=== PATIENT | female | born 1975 | race Caucasian/White ===

== ENCOUNTER → 2021-10-10 09:31 | Outpatient (CLI) | payer OTHER, SELFPAY ==
--- NOTE | 2021-10-10 09:37 | DI.US.S_ITS ---
PROCEDURE: US PELVIC COMPLETE INDICATIONS: Pelvic pain TECHNIQUE: Real-time scanning was performed of the pelvic organs, with image documentation. Additional endovaginal scanning was necessary due to incomplete visualization of the adnexal and endometrial structures by transabdominal scanning. COMPARISON: [facility] Ultrasound, US, US PELVIC COMPLETE WITH TRANSVAGINAL, 05/05/2019, 8:36. FINDINGS: Uterus: Uterus is anteverted and normal in size at 9.3 x 3.6 x 4.7 cm. The myometrium is heterogeneous. The endometrial stripe is not well seen. It measures 2-3 mm. Ovaries: The right ovary measures 2.6 x 1 x 1.1 cm. The left ovary measures 2 x 1.2 x 0.9 cm. The ovaries have a normal sonographic appearance. No adnexal masses are seen. Normal appearing arterial waveforms are confirmed to each ovary. Other: No pathologic free abdominal or pelvic fluid. IMPRESSION: A cause of pelvic pain is not identified. Negative for ovarian torsion. Endometrial stripe is poorly seen, it measures 2-3 mm in thickness. A We strive to produce accurate, complete, and clear reports of imaging services. To assist us in improving patient care, this report was composed using standard report templates and voice recognition software. Therefore, it may contain abnormal punctuation, insertions and/or omissions. Occasional wrong-word or sound-alike substitutions may occur. Though we review the report and make efforts to correct it, we do recommend that the report be read carefully in proper context to recognize any text inaccuracies. Dictated by: Alexis David M.D. on 10/10/2021 at 13:04 Approved by: Alexis David M.D. on 10/10/2021 at 13:06
== END ==
PROVIDERS: Referring Provider Obstetrics & Gynecology; Visit Provider Obstetrics & Gynecology
DX: R10.2 Pelvic and perineal pain (principal)
CPT/HCPCS: 76830; 76856

== ENCOUNTER → 2021-12-27 10:46 | Outpatient (CLI) | payer OTHER, SELFPAY ==
[2021-12-27 11:21] LABS: COVID19 -Nasal RAPID Negative (Negative)
== END ==
PROVIDERS: PCP Family Medicine; Visit Provider Obstetrics & Gynecology
DX: Z01.812 Encounter for preprocedural laboratory examination (principal); Z20.822 Contact with and (suspected) exposure to COVID-19
CPT/HCPCS: 87635

== ENCOUNTER 2021-12-28 06:33 | Day surgery (SDC) | payer OTHER, SELFPAY ==
[2021-12-28] VITALS (11 sets, daily range): BP systolic 99–147; BP diastolic 7–99; PULSE 88–99; RESP 10–16; TEMP 36.1–36.9; O2SAT 95–99; BMI 30.1
--- NOTE | 2021-12-28 | PATH_ITS ---
[facility] Accession Number: [id number] . 01 Material submitted: . PART A: endocervix - ENDOCERVICAL CURETTINGS PART B: endometrium - ENDOMETRIAL CURETTING . 02 Diagnosis: A. Endocervix, Curettage: Predominantly blood with strips of mixed benign endocervical epithelium and few strips of benign lower uterine segment endometrial glandular epithelium with features of breakdown. Rare strips of benign squamous epithelium. . B. Endometrium, Curettage: Predominantly blood with few fragments of nonproliferative endometrium with breakdown, in a background with strips of benign endocervical epithelium. Negative for significant cytologic atypia and malignancy. V 01/01/2022 1848 Local . 02 Electronically signed: . Luana John MD, Pathologist NPI- [id number] . 01 Gross description: . Part A: ENDOCERVICAL CURETTINGS: Received in formalin are minute fragments of mucoid and hemorrhagic material measuring 1.5 x 0.8 x 0.2 cm in aggregate. Submitted in toto in 1 cassette. Part B: ENDOMETRIAL CURETTING: Received in formalin are minute fragments of mucoid and hemorrhagic material measuring 2.0 x 0.7 x 0.3 cm in aggregate. Submitted in toto in 1 cassette. /[facility] 12/31/2021 1132 Local . 02 Pathologist provided ICD-10: N82.1, R10.2 . 02 CPT . 433370, 485510 Specimen Comment: A courtesy copy of this report has been sent to [facility] Pathology Performed at: 01 [facility] [address] [address] [facility], [place], [place] [id number] MD Roney Manley MD Phone: [phone] Performed at: 02 [facility] [place] [address] [place] [id number] MD Allison Worrell MD Phone: [phone]
[2021-12-28] MEDS: LACTATED RINGERS 1,000 ML 42 ML IV ×2 (07:08→09:14)
--- NOTE | 2021-12-28 07:41 | PM.PREOP ---
Pre-operative Note COVID-19 COVID-19 status: Negative Result date/Date tested (Pos, Neg/Pending): 12/27/21 Criteria for continued procedure: Non-surgical alternatives not available or appropriate per current SOC Interval Note History & Physical reviewed/Exam performed by Physician: Yes Changes to H&P: No
[2021-12-28] MEDS: BUPIVACAINE 0.5% W/ EPI (PF) 30 ML VIAL INJ (08:33)
--- NOTE | 2021-12-28 08:36 | SUR.OPER ---
Lithotomy on padded OR bed, head on pillow, arms secured on padded arm boards at <90 degrees abduction. Legs secured in padded yellow fins stirrups.
[2021-12-28] MEDS: SILVER NITRATE STICK 2 EACH TOP (09:28)
--- NOTE | 2021-12-28 09:35 | PM.GYNOP.1 ---
Operative Date/Time/Diagnoses Date of procedure: 12/28/21 Time of procedure: 08:00 Pre-op diagnosis: Chronic pelvic pain Menometrorrhagia Post-op diagnosis: other (Same as above; Pelvic adhesions) Procedure & Clinicians Procedure: Procedures Operation Date: 12/28/21 07:45 Actual Procedure Side Surgeon garfield JULES Laparoscopy with lysis of adhesions Remberto Stevens MD s Hysteroscopy, D&C Remberto Stevens MD Indications: Chel is a 46-year-old , LMP 10/10/2021 who presents with an 8 year history of progressively heavy and painful menses since having a sterilization procedure in 2012.? Menarche occurred at age 13 and she has had regular but painful periods throughout her reproductive life.? She was placed on oral contraceptives in her 20s and the use of oral contraceptives both light and her periods but also decreased heard dysmenorrhea and pelvic pain.? She has over the last several years begun to have deep dyspareunia with occasional introital dyspareunia as well.? Or menses are occurring approximately every 21-27 days with some periods lasting 7-10 days.? In addition she has had almost continuous intermenstrual spotting for the last 3-4 months.? Patient has no history of abnormal Pap smears and denies any family or personal history of breast or gynecologic malignancies.? Pap smears have been normal throughout her reproductive life and her Pap status is current.? Patient had a pelvic ultrasound performed on 10/10/2021 which shows: FINDINGS:? ?? Uterus:? Uterus is anteverted and normal in size at 9.3 x 3.6 x 4.7 cm. The myometrium is heterogeneous. ? The endometrial stripe is not well seen.? It measures 2-3 mm. ? Ovaries:? The right ovary measures 2.6 x 1 x 1.1 cm. The left ovary measures 2 x 1.2 x 0.9 cm. The ovaries have a normal sonographic appearance.? No adnexal masses are seen. Normal appearing arterial waveforms are confirmed to each ovary.? ? Other:? No pathologic free abdominal or pelvic fluid. ? ? IMPRESSION:? A cause of pelvic pain is not identified. ? Negative for ovarian torsion. ? Endometrial stripe is poorly seen, it measures 2-3 mm in thickness.? All options for further evaluation management of her symptoms were discussed at length.? The patient does not wish to consider use of a progestin secreting IUD.? The patient is however very interested in pursuing performance of endometrial ablation with D and C at the same time.? She was counseled that endometrial biopsy may be necessary or preauthorization by her insurance company but with an endometrial stripe measured 2-3 mm, endometrial biopsy is not clearly indicated prior to ablation at which time a D&C is going to be performed.? Also discussed was the possibility of doing diagnostic laparoscopy at the same time the ablation/D and C her performed due to her long history of pelvic pain, dyspareunia, and dysmenorrhea.? After consideration of all options the patient has opted for laparoscopy for chronic pelvic pain, dyspareunia, and dysmenorrhea as well as hysteroscopy with possible biopsies, dilation curettage of the uterus, and endometrial ablation (NovaSure).? Her surgery is currently scheduled for the main operating room of [facility] on 12/28/2021 and she presents today for her scheduled surgery. Surgeon: Remberto Stevens Anesthesia Type: General Operative Notes Findings: The uterus is normal in size and retroverted. The uterus sounds to cavity depth of 5.5 cm. The anterior cul-de-sac demonstrates changes consistent with prior sections. Filmy adhesions are evident between the dome of the bladder and the lower uterine segment. The posterior cul-de-sac is free of adhesions or other abnormalities. There was no evidence of pelvic endometriosis. The adnexa demonstrate changes consistent with prior salpingectomy. Both ovaries appeared to be normal but there is a small cluster of varicosities involving the right ovarian vein. The appendix and upper abdomen are normal to laparoscopic visualization visually normal. Closure Type: primary Specimen(s): endometrial curettings and other Estimated blood loss (mL): 25 Blood products transfused: none Procedure in detail: With the patient under satisfactory general endotracheal anesthesia in the modified dorsal lithotomy position, the vagina, perineum, and abdomen were prepped and draped for laparoscopy and vaginal surgery. A pre-surgical safety time-out was then taken in accordance with [facility] Main OR protocols. A speculum was placed in the vagina and the anterior lip of the cervix grasped with a single-tooth tenaculum. The endocervical canal was sequentially dilated and placement of a Zumi manipulator was attempted without success balloon being expelled through the cervix each time it was inflated. The umbilicus was then infiltrated with 0.5% Marcaine with epinephrine and a 2.5 cm transverse subumbilical incision was then made. The incision was carried down to the fascia which was grasped with two [place] clsmps and a transverse incision of the fascia resulted in entry into the abdominal cavity. The Phillips cannula was then placed and secured in place with 0 Vicryl stay sutures. The abdomen was then insufflated with carbon dioxide and confirmation of the sleeve in the abdomen was made with visualization via laparoscoped. A 2nd and 3rd 5 mm ports were placed in the right and left mid quadrants using a similar technique. Using a 3 puncture technique the pelvis and abdomen were thoroughly visualized with the findings as noted previously. Lysis of the adhesions in the anterior cul-de-sac was accomplished with monopolar current. Careful inspection and photographic documentation were carried out with the findings as noted above. Absent any additional findings that would explain the patient's pain symptoms, the pneumoperitoneum was then vented and the sleeves removed. The umbilical incision was closed with 0 Vicryl interrupted on the fascia and all the skin incisions were closed with 4-0 Monocryl using inverted interrupted stitches. Appropriate dressings were then applied attention was directed to the vaginal portion of the case. The speculum was placed in the vagina again and the cervix grasped with a single-tooth tenaculum. The endocervical canal was dilated to 7 mm and an operative hysteroscope was then placed into the uterine cavity using saline as a distention medium. It was initially thought that there was a small polyp near the right cornua but when the resectoscope was placed after switching the distension medium to sorbitol, the lesion seen was in fact artifactual. At that point the scope was withdrawn from the uterine cavity and fractional curettage accomplished with endocervical and endometrial specimens obtained. At that point the uterine cavity was sounded with the NovaSure sound and determined to be 5.5 cm. Placement of the NovaSure device within the endometrial cavity was uneventful but multiple efforts to deploy the device were unsuccessful due to the narrowness of the endometrial cavity. Because the NovaSure device could not be properly deployed, no ablation was performed. The NovaSure device was then removed and the single-tooth tenaculum was removed from the cervix. Cervical nitrate was applied to the cervix at 1 of the puncture sites resulting in excellent hemostasis. The speculum was then removed and the operation terminated the patient having tolerated the procedure well. She was then awakened from anesthesia and transferred to the PACU for a period of observation and recovery. Complications: none Post-operative Condition: stable Disposition: PACU Plan for aftercare: Routine postoperative care. Follow-up will be in 2 weeks.
[2021-12-28] MEDS: HYDROMORPHONE 2 MG INJ IV (09:55)
[2021-12-28] MEDS: ACETAMINOPHEN 325 MG TABLET 650 MG PO (10:13)
[2021-12-28] MEDS: OXYCODONE IR 5 MG TABLET PO ×2 (10:14→10:42)
--- NOTE | 2021-12-28 10:20 | SUR.PHASEI ---
Dr Stevens to bedside at 1015 to update patient on surgery.
--- NOTE | 2021-12-28 10:44 | SUR.PHASEI ---
Patient to PACU at 0940 [facility] Anesth. Awake, alert, complaining of pain, medicated by Anesth. SBAR report at beside. Patient transferred to OPD with SBAR at bedside to Braulio RODRIGUEZ. Pt tolerating juice and apple sauce, pain 3/10. Dressings remain dry and intact.
== END 2021-12-28 11:00 | disposition home or self-care (01) ==
LOC: OR 06:33
PROVIDERS: PCP Family Medicine; Referring Provider Obstetrics & Gynecology; Visit Provider Obstetrics & Gynecology
PROC: (CPT 44180; principal; 2021-12-28 07:45)
PROC: 0UDB8ZZ Extraction of Endometrium, Via Natural or Artificial Opening Endoscopic (ICD-10-PCS; CPT 58558; 2021-12-28 07:45)
DX: N92.1 Excessive and frequent menstruation with irregular cycle (principal); N94.6 Dysmenorrhea, unspecified; N94.10 Unspecified dyspareunia; J45.909 Unspecified asthma, uncomplicated
CPT/HCPCS: 44180; 58563; J1170; J1885; J2704

== ENCOUNTER → 2022-05-01 15:06 | Outpatient (CLI) | payer OTHER, SELFPAY ==
[2022-05-01 16:19] LABS: COVID19 -Nasal RAPID Negative (Negative)
== END ==
PROVIDERS: PCP Family Medicine; Visit Provider Obstetrics & Gynecology
DX: Z01.812 Encounter for preprocedural laboratory examination (principal); Z20.822 Contact with and (suspected) exposure to COVID-19
CPT/HCPCS: 87635

== ENCOUNTER 2022-05-02 11:55 | Day surgery (SDC) | payer OTHER, SELFPAY ==
[2022-04-29 11:54] VITALS: BMI 30.6
[2022-05-02] VITALS (14 sets, daily range): BP systolic 99–137; BP diastolic 45–99; PULSE 83–412; RESP 11–95; TEMP 35.6–36.6; O2SAT 11–98; BMI 30.6
--- NOTE | 2022-05-02 | PATH_ITS ---
[facility] Accession Number: [id number] . 01 Material submitted: . uterus - UTERUS AND OVARIES . 01 Diagnosis: Uterus and Ovaries, Laparoscopic Supracervical Hysterctomy and Bilateral Salpingo-oophorectomy (Weight 47 grams): Weakly proliferative endometrium; negative for glandular hyperplasia, cytologic atypia, or malignancy. Mymetrium with no significant histomorphologic abnormality. Uterine serosa focally involved by endosalpingiosis. Attached ovary with patchy stromal thecosis; negative for neoplasm. Detached ovary with a benign serous cystadenoma (3.8 cm in greatest dimension). . [facility] 05/06/2022 1511 Local . 01 Electronically signed: . Mary Ann Covarrubias MD, Pathologist NPI- [id number] . 01 Gross description: . Received in formalin labeled with the patient's name and uterus and ovaries consists of a 47 gram, mostly intact uterus measuring 4.5 cm SI, 4.5 cm ML, 3.2 cm AP, without attached cervix, one attached ovary measuring 2.8 x 2.7 x 0.7 cm, and detached ovary measuring 3.8 x 3.5 x 2.3 cm. A large circular fragment of tissue is removed from the body of the uterus where the nonattached ovary would have been. The uterine serosa is feng and congested with no areas of hemorrhage and a small amount of fibrous adhesions. Due to the lack of cervix and minimal adnexa, orientation cannot be determined. No endocervical canal is identified. The endometrial cavity (2.7 cm from cornu to cornu, 3.3 cm in length) has lush red mucosa that averages 0.1 cm thick. The myometrium is pink and measures up to 1.5 cm in maximum thickness. No lesions or nodules are identified. . The attached ovary is white and cerebriform with an unremarkable physiologic cut surface. . The detached ovary is partially white and cerebriform; however, most of the surface is take up by an intact cystic structure, and the external surface is inked blue. Serial sectioning reveals a thin-walled cystic stricture filled with feng serous fluid that grossly distorts the possible ovarian parenchyma. Two white nodular areas are located on the cyst wall measuring up to 0.3 cm in greatest dimension. . [employer] sections are submitted as follows: . A1: Full-thickness section with an area of serosal adhesion. A2: Full-thickness section. A3: [employer] attached ovary. A4: [employer] detached ovary with cyst. A5: Nodular areas on cystic wall. ([id number]) /[facility] 05/03/2022 1715 Local . 01 Pathologist provided ICD-10: N92.1, Z80.41 . 01 CPT . 447858 Specimen Comment: A courtesy copy of this report has been sent to [phone] Performed at: 01 [facility] [address] [place] [address], [place], [place] [id number] MD Roney Manley MD Phone: [phone]
[2022-05-02] MEDS: ACETAMINOPHEN IV 1,000 MG/100 ML VIAL 400 MG IV (12:53)
[2022-05-02] MEDS: LACTATED RINGERS 1,000 ML 42 ML IV ×2 (12:54→15:33)
[2022-05-02] MEDS: SCOPOLAMINE 1 PATCH TOP (12:54)
--- NOTE | 2022-05-02 12:56 | PM.PREOP ---
Pre-operative Note COVID-19 COVID-19 status: Negative Result date/Date tested (Pos, Neg/Pending): 05/01/22 Criteria for continued procedure: Non-surgical alternatives not available or appropriate per current SOC Interval Note History & Physical reviewed/Exam performed by Physician: Yes Changes to H&P: No
[2022-05-02] MEDS: CEFAZOLIN 2 GM/20 ML SYRINGE IV (13:40)
--- NOTE | 2022-05-02 14:04 | SUR.OPER ---
Lithotomy on padded OR bed. Benjamin Pad Positioner under torso. Head on pillow, arms padded and tucked at sides. Legs secured in padded yellow fins stirrups.
[2022-05-02] MEDS: BUPIVACAINE 0.5% (PF) 30 ML, EPINEPHrine 0.15 MG INJ (14:50)
[2022-05-02] MEDS: ROPIVACAINE 0.2% PF 2 MG/ML 10ML AMP 10 ML INJ (14:51)
--- NOTE | 2022-05-02 15:33 | P.OP_ITS ---
Operative Date/Time/Diagnoses Date of procedure: 05/02/22 Time of procedure: 13:40 Pre-op diagnosis: Menometrorrhagia Intermenstrual bleeding Chronic pelvic pain Dysmenorrhea Post-op diagnosis: same Procedure & Clinicians Procedure: Procedures Operation Date: 05/02/22 13:30 Actual Procedure Side Surgeon p Laparoscopic Supracervical Hysterectomy w. bilateral Oophorectomy Remberto Stevens MD Indications: Chel is a 47-year-old , LMP 04/08/2021 who presented in 10/2021 with an 8 year history of progressively heavy and painful menses since having a sterilization procedure in 2012.? Menarche occurred at age 13 and she has had regular but painful periods throughout her reproductive life.? She was placed on oral contraceptives in her 20s and the use of oral contraceptives both light and her periods but also decreased heard dysmenorrhea and pelvic pain.? She has over the last several years begun to have deep dyspareunia with occasional introital dyspareunia as well.? Menses were occurring approximately every 21-27 days with some periods lasting 7-10 days.? In addition she? had almost continuous intermenstrual spotting for the 3-4 months prior to her visit.? Patient has no history of abnormal Pap smears and denies any family or personal history of breast or gynecologic malignancies.? Pap smears have been normal throughout her reproductive life and her Pap status is current.?After considering all options, the patient opted for performance of laparoscopy, hysteroscopy, D&C and an endometrial ablation which was performed on 12/28/2021.? Evaluation at the time of surgery showed the uterus to be normal in size and retroverted.? The anterior cul-de-sac demonstrates changes consistent with prior sections.? Filmy adhesions were evident between the dome of the bladder and the lower uterine segment.? The posterior cul-de-sac was free of adhesions or other abnormalities .? There was no evidence of pelvic endometriosis.? The adnexa demonstrate changes consistent with prior salpingectomy.? Both ovaries appeared to be normal but there is a small cluster of varicosities involving the right ovarian vein.? The appendix and upper abdomen were normal to laparoscopic visualization visually normal.? Hysteroscopy showed a normal endometrial cavity with good ablation effect following Novasure ablation.? Due to persistent bleeding and cramping after the ablation, a Mirena IUD was inserted on 01/11/2022 but unfortunately her bleeding and cramping have persisted.? Patient initiated communication through the patient portal stating that she would like to go ahead and move forward with hysterectomy after prior surgical intervention and subsequent placement of IUD have not provided sufficient relief to her symptoms.? In addition, due to her 1st degree ovarian cancer history (mother at age 44), she wishes to have BSO performed and understands that doing so will require initiation of HRT to mitigate symptoms of surgical menopause.? As a consequence, patient is scheduled for total laparoscopic hysterectomy with bilateral oophorectomy and she presents today for her scheduled surgery. Surgeon: Remberto Stevens Propulsion Motor And Generator Repairer: Kimberly Keller Anesthesia Type: General Operative Notes Findings: Normal size uterus without visible abnormality. The anterior cul-de-sac shows scarring consistent with prior section. Both tubes are surgically absent. Both ovaries appear normal with the left ovary containing a small follicular cyst Closure Type: primary Specimen(s): uterus and other (Right and left ovaries) Applied: catheter Estimated blood loss (mL): 25 Blood products transfused: none Procedure in detail: With the patient in modified dorsal lithotomy position preparations were made by prepping and draping the patient in usual manner for vaginal surgery and insertion of Doty catheter. A pre-surgical time-out was then taken in accordance with [facility] Main OR policy. A bivalve speculum was then placed in the vagina and the cervix visualized. The anterior lip of the cervix was then grasped with a single-tooth tenaculum. The uterus was sounded to 7.5 cm, the endocervical canal dilated slightly, and a Zumi uterine manipulator. T he umbilicus was then infiltrated with 0.5% Marcaine with epinephrine or a combination of 0.5% bupivacaine with epinephrine and liposomal bupivacaine. A 1 cm umbilical incision was made transversely and a Veress needle was used to insufflate the abdominal cavity with carbon dioxide. Once the abdomen was appropriately insufflated, a 5 mm trocar and sleeve were then placed through the umbilical incision. The scope was placed through the trocar and the initial assessment of the intra-abdominal contents carried out. A 2nd and 3rd 5 mm port was then placed 1st in the right mid quadrant from then the left mid quadrant by infiltration of the skin and subcutaneous tissues, a 1 cm transverse incision and insertion of the 5 mm bladeless port. Using a 3 puncture technique, the abdomen and pelvis were inspected laparoscopy and photographically documented. Uterus is mobilized with the Zumi manipulator and attention turned to the right adnexa. The left ovary was then grasped and the infundibulopelvic ligament divided after coagulation with the Power Seal device. The dissection was then carried out across the round ligament on the left side and down the lateral aspect of the uterus to the level of the vesicouterine reflection. Bladder flap was then initiated from the left side across the midline to the right and the vessels were taken on the left side with the power seal device. The vessels were divided found to be hemostatic. Attention was then turned to the right side where the right ovary was grasped and elevated, the infundibulopelvic ligament coagulated and divided with a power seal device, and the dissection carried up across the round ligament down the lateral aspect of the uterus to the level of the vesicouterine reflection. The bladder flap was completed with the power seal device and the bladder advanced. The Zumi manipulator was removed and a Kathryn loop was then used to amputate the corpus of the uterus from the cervix at the level of the upper endocervical canal. Monopolar cautery was used to coagulate the endocervical canal and there was no bleeding evident from the cervical stump. Pelvis is irrigated and inspected and there was no bleeding noted in the pelvis or any of the pedicles. A 4 cm transverse incision was made in the line of her old section scar and a 12 mm trocar and sleeve were then placed through the incision. A large Endo-Catch was then used to retrieve the uterus and ovaries and with the assistance of an John Paul retractor, the uterus and ovaries were morcellated and brought out through the incision. 20 cc of ropivacaine were then placed in the pelvis and the pedicles reinspected. After assuring complete hemostasis in the pelvis, the transverse incision was then closed with 0 Vicryl in a running stitch on the fascia and the skin edges of all incisions were closed with 4-0 Monocryl using inverted interrupted stitches. Skin glue was placed and after the glue was dried, an appropriate dressing was applied. The case was then terminated, the patient awakened, and then transferred to PACU after having tolerated the procedure well. Complications: none Post-operative Condition: stable Disposition: PACU Plan for aftercare: Routine post-op care. Anticipate discharge AM 05/03/2022.
[2022-05-02] MEDS: OXYCODONE IR 5 MG TABLET PO ×3 (15:35→23:00)
[2022-05-02] MEDS: ONDANSETRON 4 MG/2 ML INJ IV ×2 (15:35→18:44)
[2022-05-02] MEDS: HYDROMORPHONE 2 MG INJ IV (15:35)
[2022-05-02] MEDS: ACETAMINOPHEN 325 MG TABLET 650 MG PO (16:47)
[2022-05-02] MEDS: KETOROLAC 30 MG/ML VIAL IV ×2 (16:47→21:04)
[2022-05-02] MEDS: LACTATED RINGERS 1,000 ML 100 ML IV (16:52)
--- NOTE | 2022-05-02 18:08 | PC.NURSE ---
Pt arrived from PACU awake/drowsy Lap site dsg x 4 to abdomen & albert pad CDI IVF infusing as per orders. Doty cath patent clear yellow urine. Call light w/in reach, bed alarm on for pt safety. Continue w/plan of care.
[2022-05-02] MEDS: CYCLOBENZAPRINE 10 MG TABLET PO (21:04)
[2022-05-02] MEDS: DOCUSATE 100 MG CAPSULE 200 MG PO (21:04)
[2022-05-02] MEDS: MORPHINE 4 MG/ML INJ IV (22:26)
[2022-05-03] MEDS: OXYCODONE IR 5 MG TABLET PO ×3 (02:49→10:48)
[2022-05-03] MEDS: LACTATED RINGERS 1,000 ML 100 ML IV (03:49)
[2022-05-03] MEDS: KETOROLAC 30 MG/ML VIAL IV ×2 (03:50→10:10)
[2022-05-03 05:35] LABS: Add Manual Diff / Slide Review NO; Basophils Absolute Auto 0 /uL (0-100); Basophils Percent Auto 0.3 % (0-2); Eosinophils Absolute Auto 0 /uL (0-450); Eosinophils Percent Auto 0.1 % (2-4); Hematocrit 33.4 % (36-46); Hemoglobin 11.1 g/dL (12.0-16.0); Lymphocytes Absolute Auto 1000 /uL (1100-4500); Lymphocytes Percent Auto 10.1 % (25-40); Mean Corpuscular HGB Conc 33.3 % (30-36); Mean Corpuscular Hemoglobin 29.8 PG (26-34); Mean Corpuscular Volume 89.5 fL (80-100); Monocytes Absolute Auto 600 /uL (0-900); Monocytes Percent Auto 5.5 % (3-14); Neutrophils Absolute Auto 8600 /uL (1500-7000); Platelet Count 314 X10^3/uL (150-400); Red Blood Cell Count 3.73 X10^6/uL (4.0-5.2); Red Cell Distribution Width 13.5 % (11.6-14.8); White Blood Cell Count 10.3 X10^3/uL (4.5-11.0)
[2022-05-03] MEDS: PANTOPRAZOLE DR 20 MG TABLET PO (06:32)
--- NOTE | 2022-05-03 07:45 | PM.DS.1 ---
History of Present Illness History of Present Illness Date Patient Seen: 05/03/22 Time Patient Seen: 07:45 Chief complaint: SDC / *OPB* Discharge Providers Provider Date of admission: 05/02/2022 Discharge Date: 05/03/22 Primary care physician: Allison Ching MD Discharge provider: Remberto Stevens MD Summary Hospital Course Discharge Diagnosis: Menorrhagia Dysmenorrhea Chronic pelvic pain Hospital Course: On the afternoon of 05/02/2022 the patient underwent an uneventful laparoscopic supracervical hysterectomy with bilateral oophorectomy. Details of the procedure well summarized in my operative note of that date. Following surgery the patient has done extremely well with prompt return of bowel and bladder function, she has remained afebrile and normotensive, she is tolerating a regular diet, ambulating independently, and her pain is well controlled with oral pain medications. First morning postop hemoglobin and hematocrit are 11 and 33 respectively. She continues to have some right lower quadrant pain but otherwise has the expected postsurgical discomfort. She will be discharged at this time after counseling regarding precautionary symptoms, limitations activity, medications, and plans for follow-up which will be in 2 weeks. Patient will resume all of her preop medications at home and will be prescribed oxycodone 5 mg tabs 1 p.o. q.4 hours as needed pain #20 With no refills, and ibuprofen 600 mg p.o. q.6 hours as needed pain dispense 60 with 2 refills. In addition the patient will be initiated on oral estradiol 1.0 mg p.o. q.d. and Prometrium 200 mg p.o. HS. Status at Discharge Cognitive/behavioral status at discharge: oriented Functional status at discharge: independent ambulation Overall status at discharge: patient is progressing back to baseline Time Spent with Patient Time spent: Less than 30 minutes Exam Vital Signs (past 8 hours): Oxygen Delivery Method Room Air Oxygen Flow Rate 0 Const General: cooperative and comfortable Nutritional Appearance: average body habitus Orientation: alert and oriented x3 HENMT Head: normal to inspection, atraumatic and abrasion Ears: hearing grossly normal bilaterally Face and sinus: face symmetric Eyes General: appearance normal, both eyes and all related structures Conjunctivae: conjunctivae normal Sclera: sclerae normal EOM: EOM intact bilaterally Neck Neck: normal visual inspection Resp Effort & Inspection: normal respiratory effort and able to speak in complete sentences Auscultation: clear to auscultation bilaterally Cardio Rate: regular rate Rhythm: regular rhythm Heart Sounds: S1 normal, S2 normal and no murmurs GI Inspection: normal to inspection and incision (Surgical dressings clean and dry) Palpation: soft, no hepatosplenomegaly and tender (Mild, diffuse postsurgical tenderness) External Female Exam: other (No significant bleeding noted) Extrem General: no calf tenderness Psych Appearance: grossly normal Mental Status: mental status grossly normal Speech and Movement: speech and movement normal Mood: congruent mood Affect: normal affect Attitude: cooperative Thought Process: normal Thought Content: normal Judgment: judgment good Objective Labs Result Diagrams: 05/03/22 05:05 Labs: Laboratory Results - last 24 hr 05/03/22 05:05 WBC 10.3 RBC 3.73 L Hgb 11.1 L Hct 33.4 L MCV 89.5 MCH 29.8 MCHC 33.3 RDW 13.5 Plt Count 314 Neut % (Auto) 84.0 H Lymph % (Auto) 10.1 L Glascock % (Auto) 5.5 Eos % (Auto) 0.1 L Baso % (Auto) 0.3 Neut # (Auto) 8600 H Lymph # (Auto) 1000 L Glascock # (Auto) 600 Eos # (Auto) 0 Baso # (Auto) 0 PFSH Medical History (Updated 04/25/22 @ 15:23 by Remberto Stevens MD) Asthma Diverticular disease Heavy menstrual period (~2013) Menstrual bleeding problem (~2020) Surgical History (Updated 04/29/22 @ 11:59 by Angela Chen RN) Anesthesia History of arthroscopic surgery of shoulder History of section (~01/2013) History of laparoscopic cholecystectomy History of tubal ligation (~2013) Hx of laparoscopy (12/28/21) Family History Father History of chemotherapy Bladder cancer History of heart disease Hypertension Mother Cancer Brother Hypertension Family/Other Cancer Social History household members: spouse Smoking Status: Never smoker alcohol intake: never Discharge Plan Discharge Plan Patient Disposition: Home Provider Discharge Comment: Please review the written instructions you received when you were discharged from the hospital. Your follow-up appointment will be scheduled for 2 weeks after your surgery date and I look forward to seeing you then. If in the meanwhile you have any issues, concerns, or problems, please contact me either through the office phone at [phone] or via the patient portal. Discharge orders & Medications Discharge Orders: Discharge (Order); Ordered 05/03/22 Ordered By: Remberto Stevens Prescriptions: New oxycodone 5 mg tablet 5 mg PO Q4H PRN (Reason: pain) Qty: 20 0RF ibuprofen 600 mg tablet 600 mg PO Q6H PRN (Reason: fever or pain) Qty: 60 2RF estradiol 1 mg tablet 1 mg PO DAILY Qty: 30 12RF progesterone micronized [Prometrium] 200 mg capsule 200 mg PO QPM Qty: 30 12RF Continued prochlorperazine maleate [Compazine] 10 mg tablet 10 mg PO BID PRN (Reason: Nausea/vomiting) cyclobenzaprine 10 mg tablet 10 mg PO BEDTIME Saccharomyces boulardii [Florastor] 250 mg capsule 250 mg PO BID ramelteon 8 mg tablet 8 mg PO BEDTIME fluticasone propionate [Flonase Allergy Relief] 50 mcg/actuation spray,suspension 1 spray intranasal DAILY Rx Instructions: administer into each nostril omeprazole magnesium [Prilosec OTC] 20 mg tablet,delayed release (DR/EC) 20 mg PO DAILY loratadine-pseudoephedrine [Claritin-D 24 Hour] 10-240 mg tablet extended release 24 hr 1 tab PO DAILY Follow up/Referrals: Allison Ching MD [Primary Care Provider] - Diet/Activity/Treatments Diet: Diet as Tolerated Activity: As tolerated Other treatments: [id number] Tylenol as needed; may be taken in addition to ibuprofen and/or oxycodone Skin/Wound/Dressing Care Report to your healthcare provider any signs of infection, such as:: chills, fever, increased pain, unusual drainage and unusual redness Dressing: Dressings may be removed on the morning of 05/04/2022 Visit Report/Discharge Packet Instructions: DI for Hysterectomy, DI for Laparoscopy Stand Alone Forms: Surgery Discharge Discharge Data Primary Care Provider: Allison Ching Attending Provider: Remberto Stevens VTE Deep Vein Thrombosis/Pulmonary Embolism Present on Admission: No
[2022-05-03 08:00] VITALS: BP 108/67; PULSE 80; RESP 17; TEMP 36.6; O2SAT 96
--- NOTE | 2022-05-03 08:33 | CM.DANOTE ---
DCP Brief Assessment Note Patient is a 47 yo female who was admitted on 05/02/22 for Hysterectomy. Pt has PRE DIM for insurance and her PCP is Allison Ching. EMR was reviewed. Per Surgeon, pt with planned surgery for ongoing medical complications and tolerated surgery well and has moderate pain and earl cath still. Per RN, pt independent in room and no concerns at this time. Pt lives with spouse in [place] and has one young child and is independent at baseline, drives, does not use DME and preference is home. Plan: SW to follow to confirm safe plan of d/c to home when medically stable and any further identified discharge planning needs. LAKSHMI [place] Discharge Planning/Care Management Pre-Anesthesia Assessment Start: 04/29/22 11:54 Freq: Status: Complete Protocol: Document 04/29/22 11:54 [facility] (Rec: 04/29/22 12:00 [facility] [id number]) Pre-Anesthesia Assessment PAC Comment Pt is a nurse at [employer] Patient Information Reviewed Via Chart Review Comment COVID screen @ 05/01/22 Seen Specialist in Last 12 Months Yes Specialist Seen Corrective Therapy Aide Primary Language Amharic Wool Grower Required No Height 160.02 cm Weight 78.471 kg Body Mass Index (BMI) 30.6 Barriers to Learning None Hx Anesthesia Reactions No Hx Family Anesthesia Reaction No Hx Malignant Hyperthermia No Hx Blood Transfusion Reaction No Anesthesia Review Requested No Surgical Assistant Certified No alcohol intake never Smoking Status Never smoker Substance Use Type does not use Pain Present Pain Reported History of Falling (Recent or History of No ) Patient is completely paralyzed or No completely immobile Mental Status Oriented to own ability Is patient on oxygen? No Hx Sleep Apnea No CPAP/BIPAP use not prescribed Currently Taking a Beta Alisha No Anti-Coagulant Therapy No Cardiac Testing No Hx Pacemaker/ICD No Pacemaker Rep Required? No Cardiac Clearance Received Not Applicable Urinary Catheter Present No Hx Urinary Self Catheterization No Diabetes No Patient No Lactating No Comment LMP 04/08/22 Presence of External or Internal Medical No Devices Received a COVID vaccine? Yes Marital Status Lives With spouse Patient Discharge Plan Description Return Home Advance Directives? No Advance Directives on File No Power of Weight Clerk No
[2022-05-03] MEDS: DOCUSATE 100 MG CAPSULE 200 MG PO (09:04)
[2022-05-03] MEDS: FLUTICASONE 120 SPRAY/16 GM SPRAY.SUSP NASAL (09:04)
[2022-05-03] MEDS: estradioL 1 MG TABLET PO (09:04)
[2022-05-03] MEDS: LORATADINE 10 MG TABLET PO (09:04)
--- NOTE | 2022-05-03 11:54 | PC.NURSE ---
Pt A&O pain level 05/19. Discussing going home this morning. Dr. Stevens in to talk with Pt. Pt readying to go home. Instructions given and IV 's discontinued. Pt dressed. Escorted to private car via w/c. Scripts, belongings and instructions with patient.
== END 2022-05-03 10:57 | disposition home or self-care (01) ==
LOC: OR 11:55 → AC 11:58
PROVIDERS: PCP Family Medicine; Referring Provider Obstetrics & Gynecology; Visit Provider Obstetrics & Gynecology
PROC: 0UT94ZL Resection of Uterus, Supracervical, Percutaneous Endoscopic Approach (ICD-10-PCS; CPT 58542; principal; 2022-05-02 13:30)
DX: N92.1 Excessive and frequent menstruation with irregular cycle (principal); N92.3 Ovulation bleeding; Z80.41 Family history of malignant neoplasm of ovary; N94.6 Dysmenorrhea, unspecified; N99.85 Post endometrial ablation syndrome; N94.89 Other specified conditions associated with female genital organs and menstrual cycle; D27.9 Benign neoplasm of unspecified ovary
CPT/HCPCS: 58542; 36415; 85025; J0131; J0171; J0690; J1100; J1170; J1885; J2250; J2270; J2405; J2704; J2795; J3010

== ENCOUNTER → 2022-05-10 16:24 | Outpatient (CLI) | payer OTHER, SELFPAY ==
[2022-05-02 16:22] VITALS: BMI 30.6
== END ==
PROVIDERS: PCP Family Medicine; Visit Provider Obstetrics & Gynecology
DX: R10.2 Pelvic and perineal pain (principal)
CPT/HCPCS: 87086